=== PATIENT | female | born 1985 | race Caucasian/White ===

== ENCOUNTER 2020-09-07 12:24 | Emergency (ER) | payer BC ==
[~2020-09-07] VITALS: Ht 177.8 cm; Wt 70.0 kg
[2020-09-07 12:35] VITALS: BP 121/58
[2020-09-07 13:08] LABS: BILIRUBIN,URINE NEGATIVE (NEG); CLARITY,URINE CLEAR; COLOR,URINE YELLOW; NITRITE,URINE NEGATIVE (NEG); PH,URINE 7.5 (<5.0-8.0); PROTEIN,URINE NEGATIVE (NEG-TRACE); UROBILINOGEN,URINE 0.2 mg/dL (0.2 mg/dL)
[2020-09-07 13:19] LABS: BACTERIA,URINE FEW /HPF (0-FEW); RBC,URINE 0 /HPF (0-2); WBC,URINE 0 /HPF (0-4)
[2020-09-07 13:25] LABS: BASO # 0.1 x10^3/uL (0.0-0.2); BASO % 2 % (0-3); EOS # 0.1 x10^3/uL (0.0-0.7); EOS % 2 % (0-3); LYMPH # 1.2 x10^3/uL (1.0-4.8); LYMPH % 24 % (24-48); MEAN CORPUSCULAR HEMOGLOBIN 33 pg (25-35); MEAN CORPUSCULAR HGB CONC 35 g/dL (31-37); MEAN CORPUSCULAR VOLUME 93 fL (79-100); MONO # 0.4 x10^3/uL (0.0-1.1); MONO % 8 % (0-9); NEUT # 3.2 x10^3/uL (1.8-7.7); NEUT % 65 % (31-73); PLATELET COUNT 221 x10^3/uL (140-400); RED BLOOD COUNT 4.31 x10^6/uL (3.50-5.40); RED CELL DISTRIBUTION WIDTH 12.2 % (11.5-14.5); WHITE BLOOD COUNT 4.9 x10^3/uL (4.0-11.0)
[2020-09-07 13:28] LABS: CALCIUM 8.7 mg/dL (8.5-10.1); CREATININE 0.8 mg/dL (0.6-1.0); GFR 81.6
[2020-09-07] MEDS ORDERED: LORazepam 0.5 MG TABLET PO ONE (13:30)
[2020-09-07 13:34] LABS: ALBUMIN/GLOBULIN RATIO 1.4 (1.0-1.7); TOTAL BILIRUBIN 0.6 mg/dL (0.2-1.0); TOTAL PROTEIN 6.9 g/dL (6.4-8.2)
[2020-09-07] MEDS ORDERED: IV NORMAL SALINE 1000ML BAG 1,000 ML IV ONE (14:00)
[2020-09-07] MEDS ORDERED: IOHEXOL 300 MG/ML 100ML VIAL. IV ONE (14:00)
[2020-09-07] MEDS ORDERED: CONTRAST GIVEN. MC PRN (14:00)
[2020-09-07] MEDS ORDERED: fentaNYL PF VIAL 100 MCG/2 ML VIAL IV ONE (14:15)
--- NOTE | 2020-09-07 15:02 | RAD ---
CT scan of the head without contrast 09/07/2020 Clinical History: Lightheadedness. Technique: Unenhanced, contiguous, 5 mm axial sections were obtained through the head. One or more of the following individualized dose reduction techniques were utilized for this study: 1. Automated exposure control. 2. Adjustment of the mA and/or kV according to patient size. 3. Use of iterative reconstruction technique. Findings: The ventricles and sulci are within normal limits in size and configuration. No area of abn ormal attenuation is seen involving brain parenchyma. No extra-axial fluid collection is noted. No sk ull fracture is seen. The orbits are within normal limits. Impression: Negative study. Electronically signed by: Dez Goldsmith MD (09/07/2020 2:59 PM) [id number]
--- NOTE | 2020-09-07 15:08 | RAD ---
CT scan abdomen and pelvis with contrast 09/07/2020 CLINICAL HISTORY: Left-sided abdominal pain. TECHNIQUE: After the intravenous administration of 75 cc of Omnipaque 300 only, contiguous, 5 mm axia l sections were obtained through the abdomen and pelvis. One or more of the following individualized dose reduction techniques were utilized for this study: 1. Automated exposure control. 2. Adjustment of the mA and/or kV according to patient size. 3. Use of iterative reconstruction technique. FINDINGS: Images through the lung bases demonstrate minimal dependent subsegmental atelectasis bilate rally. The liver, spleen, pancreas, adrenal glands and kidneys are within normal limits. The abdominal aorta tapers normally. Surgical clips are seen within the gallbladder fossa consistent with a cholecystectomy. Air and stool are seen throughout the colon. Images through the pelvis demonstrate the urinary bladder distended with urine. No adnexal mass is se en. No free fluid is noted. Very mild S-shaped curvature of the thoracolumbar spine is noted. IMPRESSION: No acute abnormality is seen. Electronically signed by: Dez Goldsmith MD (09/07/2020 3:05 PM) [id number]
--- NOTE | 2020-09-07 15:11 | ED.ADGEN ---
General Adult EDM: Chief Complaint: MULTIPLE COMPLAINTS HPI: HPI: Patient is a 35 year old female who presents emergency department with complaints of pain in her neck lateral left ribs and left flank that increases with deep breath for the last month. Patient states that the pain was significantly worse today. She has been evaluated by her primary care doctor and had a negative chest x-ray done. Patient states she started taking Macrobid for urinary tract infection 3 days ago. She reports that today she woke up and her vision has been intermittently blurry and she has felt lightheaded. She denies any photosensitivity, numbness, tingling, weakness, headache, or head injury. She denies any cough, shortness of breath, fever, nausea, vomiting, diarrhea, abdominal pain, body aches, or fatigue. 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 She denies any close contact with anyone who has COVID-19. She currently rates her pain a 6 out of 10 on the pain scale. She denies any dysuria, hematuria, or difficulty voiding. She denies any alleviating factors. Review of Systems: Review of Systems: Complete ROS is negative unless otherwise noted in HPI. Current Medications: Current Medications Medications (Trade) Dose Ordered Sig/Hernán Start Time Stop Time Status Last Admin Dose Admin Fentanyl Citrate (Fentanyl 2ml Vial) 50 mcg 1X ONCE 09/07/20 14:15 09/07/20 14:16 DC 09/07/20 14:18 50 MCG Info (CONTRAST GIVEN -- Rx MONITORING) 1 each PRN DAILY PRN 09/07/20 14:00 09/07/20 16:15 DC Iohexol (Omnipaque 300 Mg/ml) 75 ml 1X ONCE 09/07/20 14:00 09/07/20 14:01 DC 09/07/20 14:23 75 ML Lorazepam (Ativan) 0.5 mg 1X ONCE 09/07/20 13:30 09/07/20 13:31 DC 09/07/20 13:35 0.5 MG Sodium Chloride 1,000 ml @ 1,000 mls/hr 1X ONCE 09/07/20 14:00 09/07/20 14:59 DC 09/07/20 14:18 1,000 MLS/HR Allergies: Allergies: Allergies Coded Allergies Type Severity Reaction Last Updated Verified No Known Drug Allergies 09/07/20 No Physical Exam: PE: See Above Constitutional: Well developed, well nourished, no acute distress, non-toxic appearance, anxious. [] HENT: Normocephalic, atraumatic, bilateral external ears normal, nose normal. [] Eyes: PERRLA, EOMI, conjunctiva normal, no discharge. [] Neck: Normal range of motion, no stridor, no JVD [] Cardiovascular:Heart rate regular rhythm Lungs & Thorax: Respirations even and unlabored, no retractions, no respiratory distress; lateral left rib tenderness to palpation without crepitus or subcutaneous emphysema Abdomen: soft, no tenderness Back: Left CVA tenderness, no bony tenderness Skin: Warm, dry, no erythema, no rash. [] Extremities: No cyanosis, ROM intact, no edema. [] Neurologic: Alert and oriented X 3, no focal deficits noted. [] Psychologic: Affect normal, judgement normal, mood anxious Current Patient Data: Labs: Laboratory Tests Test 09/07/20 12:35 09/07/20 12:45 09/07/20 13:10 Urine Collection Type Unknown Urine Color Yellow Urine Clarity Clear Urine pH 7.5 (<5.0-8.0) Urine Specific Elfrida <=1.005 (1.000-1.030) Urine Protein Negative mg/dL (NEG-TRACE) Urine Glucose (UA) Negative mg/dL (NEG) Urine Ketones (Stick) Negative mg/dL (NEG) Urine Blood Moderate (NEG) Urine Nitrite Negative (NEG) Urine Bilirubin Negative (NEG) Urine Urobilinogen Dipstick 0.2 mg/dL (0.2 mg/dL) Urine Leukocyte Esterase Negative (NEG) Urine RBC 0 /HPF (0-2) Urine WBC 0 /HPF (0-4) Urine Squamous Epithelial Cells Few /LPF Urine Bacteria Few /HPF (0-FEW) POC Urine HCG, Qualitative Hcg negative (Negative) White Blood Count 4.9 x10^3/uL (4.0-11.0) Red Blood Count 4.31 x10^6/uL (3.50-5.40) Hemoglobin 14.0 g/dL (12.0-15.5) Hematocrit 40.0 % (36.0-47.0) Mean Corpuscular Volume 93 fL (79-100) Mean Corpuscular Hemoglobin 33 pg (25-35) Mean Corpuscular Hemoglobin Concent 35 g/dL (31-37) Red Cell Distribution Width 12.2 % (11.5-14.5) Platelet Count 221 x10^3/uL (140-400) Neutrophils (%) (Auto) 65 % (31-73) Lymphocytes (%) (Auto) 24 % (24-48) Monocytes (%) (Auto) 8 % (0-9) Eosinophils (%) (Auto) 2 % (0-3) Basophils (%) (Auto) 2 % (0-3) Neutrophils # (Auto) 3.2 x10^3/uL (1.8-7.7) Lymphocytes # (Auto) 1.2 x10^3/uL (1.0-4.8) Monocytes # (Auto) 0.4 x10^3/uL (0.0-1.1) Eosinophils # (Auto) 0.1 x10^3/uL (0.0-0.7) Basophils # (Auto) 0.1 x10^3/uL (0.0-0.2) D-Dimer (Brittney) < 0.27 ug/mlFEU Sodium Level 138 mmol/L (136-145) Potassium Level 4.0 mmol/L (3.5-5.1) Chloride Level 101 mmol/L (98-107) Carbon Dioxide Level 27 mmol/L (21-32) Anion Gap 10 (6-14) Blood Urea Nitrogen 9 mg/dL (7-20) Creatinine 0.8 mg/dL (0.6-1.0) Estimated GFR (Cockcroft-Gault) 81.6 BUN/Creatinine Ratio 11 (6-20) Glucose Level 87 mg/dL (70-99) Calcium Level 8.7 mg/dL (8.5-10.1) Magnesium Level 2.0 mg/dL (1.8-2.4) Total Bilirubin 0.6 mg/dL (0.2-1.0) Aspartate Amino Transferase (AST) 18 U/L (15-37) Alanine Aminotransferase (ALT) 20 U/L (14-59) Alkaline Phosphatase 70 U/L (46-116) Total Protein 6.9 g/dL (6.4-8.2) Albumin 4.0 g/dL (3.4-5.0) Albumin/Globulin Ratio 1.4 (1.0-1.7) Lipase 90 U/L (73-393) Laboratory Tests 09/07/20 13:10 Laboratory Tests 09/07/20 13:10 Vital Signs: Vital Signs Date Time Temp Pulse Resp B/P (MAP) Pulse Ox O2 Delivery O2 Flow Rate FiO2 09/07/20 12:35 98.2 78 18 121/58 (79) 98 Room Air 98.2 EKG: EK-sinus rhythm, rate 65, no STEMI, read by Dr. Gary [] Heart Score: Risk Factors: Risk Factors: DM, Current or recent (<one month) smoker, HTN, HLP, family history of CAD, obesity. Risk Scores: Score 0 - 3: 2.5% MACE over next 6 weeks - Discharge Home Score 4 - 6: 20.3% MACE over next 6 weeks - Admit for Clinical Observation Score 7 - 10: 72.7% MACE over next 6 weeks - Early Invasive Strategies Radiology/Procedures: Radiology/Procedures: PROCEDURE: CT HEAD WO CONTRAST CT scan of the head without contrast 09/07/2020 Clinical History: Lightheadedness. Technique: Unenhanced, contiguous, 5 mm axial sections were obtained through the head. One or more of the following individualized dose reduction techniques were utilized for this study: 1. Automated exposure control. 2. Adjustment of the mA and/or kV according to patient size. 3. Use of iterative reconstruction technique. Findings: The ventricles and sulci are within normal limits in size and configuration. No area of abnormal attenuation is seen involving brain parenchyma. No extra-axial fluid collection is noted. No skull fracture is seen. The orbits are within normal limits. Impression: Negative study.[] Course & Med Decision Making: Course & Med Decision Making Pertinent Labs and Imaging studies reviewed. (See chart for details) 35-year-old female who presents to emergency department with multiple complaints. Work-up included labs, urinalysis, CT head, CT abdomen pelvis with IV contrast, and an EKG CBC, CMP, D-dimer are all negative and within normal limits. Twelve-lead EKG revealed no acute findings, CT head and CT abdomen pelvis were negative for any acute findings. Orthostatic blood pressures were unremarkable. Patient's vital signs are stable throughout her emergency department visit. The patient was given half a milligram of Ativan IV, 1 L of normal saline, and 50 mcg of fentanyl IV in the department. She reported feeling better after these medications. Advised the patient that the pain she is experiencing is likely due to pleurisy. Prescription was written for naproxen 500 mg p.o. twice daily as needed. I encouraged patient to take the next few days off of work and to follow-up with her primary care doctor next week. Patient verbalized an understanding of home care, medications, follow-up, and return to ED instructions and was in agreement with the plan of care. [] I have reviewed the PA/RECREATION ATTENDANT's note and Plan of Care. I was available for consultation as needed during the patient's visit in the emergency department. I agree with the clinical impression, plans and disposition. Alondraon Disclaimer: Kole Disclaimer: This electronic medical record was generated, in whole or in part, using a voice recognition dictation system. Departure Departure Impression: Primary Impression: Pleuritic chest pain Additional Impression: Anxiety about health Disposition: 01 DC HOME SELF CARE/HOMELESS Condition: STABLE Referrals: LANI FALLON (PCP) Patient Instructions: Anxiety and Panic Attacks, [id number], Pleurisy, [id number] Additional Instructions: Fill prescription(s) and use as directed. You may also take Tylenol as needed for pain/fever. Increase clear fluids. Avoid airway triggers such as smoke, fragrance, dust, and pollen. Follow-up with your primary care doctor next week, return to the ER if symptoms worsen. Scripts Naproxen (NAPROXEN) 500 Mg Tablet 1 TAB PO BID PRN for PAIN for 10 Days, #20 TAB 0 Refills Prov: VIVIAN JAQUEZ APRN 09/07/20 Problem Qualifiers VIVIAN JAQUEZ APRN Sep 07, 2020 15:11 BEATRIZ GARY MD Sep 07, 2020 17:15
--- NOTE | 2020-09-07 15:42 | EKG ---
[facility] [address] [place] [address] Test Date: 2020-09-07 Test Time: 15:17:43 Pat Name: FREDRICK MCPHERSON Department: Room: Gender: F [employer]: : 1985 Requested By: VIVIAN JAQUEZ Order Number: [id number] Reading MD: Measurements Intervals [place] Rate: 65 P: 52 CT: 116 QRS: 62 QRSD: 88 T: 27 QT: 406 QTc: 427 Interpretive Statements SINUS RHYTHM NORMAL ECG RI6.02 No previous ECG available for comparison
[2020-09-07] MEDS ORDERED: NAPR-514 PO (15:46)
== END 2020-09-07 16:15 | disposition home or self-care (01) ==
LOC: ER 12:24
DX: R07.81 Pleurodynia (principal); F41.9 Anxiety disorder, unspecified; M54.2 Cervicalgia; R10.9 Unspecified abdominal pain
CPT/HCPCS: 36415; 70450; 74177; 80053; 81001; 81025; 83690; 83735; 85025; 85379; 93005; 96361; 96374; 99285; J3010; J7030; Q9967